=== PATIENT | female | born 1985 | race Caucasian/White ===

== ENCOUNTER 2016-07-25 15:13 | Emergency (ER) | payer OTHER ==
[~2016-07-25] VITALS: Ht 162.6 cm; Wt 54.2 kg
[~2016-07-25 15:13] MED LIST: AMBIEN10 MG PO; BACTRIM,SEPT1 TABLET PO; BENTYL10 MG PO; FLEXERIL10 MG PO; KEFLEX500 MG PO; METHADONE10 MG PO; ORTHO TRI-CY1 TABLE1 PO; PERCOCET 10/1 TABLET PO; PERCOCET 5/31 TABLET; PERCOCET 5/31 TABLET PO; SERTRALINE HCL50 MG PO; STOOL SOFTENER100 M1 PO; ZOFRAN ODT4 MG PO; ZOLOFT50 MG PO
[2016-07-25 17:01] LABS: HEMATOCRIT 36.5 % (36.0-46.0); MCH 31.9 PG (29.0-34.0); MCHC 34.8 G/DL (30.0-36.0); MCV 91.7 FL (83-99); MEAN PLAT.VOLUME 9.5 uM^3 (9.5-12.4); PLATELET COUNT 294 K/uL (156-360); RBC DIS.WIDTH-SD 41.9 % (39-53); RED BLOOD COUNT 3.98 M/uL (3.80-5.20); WHITE BLOOD COUNT 11.4 K/uL (4.1-10.2)
[2016-07-25 17:10] LABS: CHLORIDE 100 mEq/L (99-109); POTASSIUM 2.8 mEq/L (3.7-5.4); SODIUM 137 mEq/L (136-147)
[2016-07-25 17:12] LABS: GLUCOSE 86 mg/dL (70-99)
[2016-07-25 17:14] LABS: ANION GAP 9 MEQ/L (2-14); D-DIMER ELISA 1.58 mg/L FEU (< 0.57)
[2016-07-25 17:16] LABS: GFR ESTIMATE (CALCULATED) > 59 mL/min/
[2016-07-25 17:17] LABS: UREA NITROGEN (BUN) 8 mg/dL (9-23)
[2016-07-25 17:23] LABS: TROP-I INTERPRETATION NEGATIVE; TROPONIN-I < 0.01 ng/mL (0.0-0.30)
[2016-07-25] MEDS ORDERED: PRENATAL TABLE1 EAC3 PO (20:32)
[2016-07-25] MEDS ORDERED: METHADONE10 MG PO (20:32)
[2016-07-25] MEDS ORDERED: POTASSIUM CHLO10 ME3 PO (20:33)
[2016-07-25 21:10] VITALS: BP 92/61
== END 2016-07-25 21:10 | disposition home or self-care (01) ==
LOC: EME 15:13
PROVIDERS: Emergency Medicine
DX: O99.89 Other specified diseases and conditions complicating pregnancy, childbirth and the puerperium (principal); R07.89 Other chest pain; E86.0 Dehydration; Z3A.27 27 weeks gestation of pregnancy; Z87.440 Personal history of urinary (tract) infections
CPT/HCPCS: 71020; 71275; 80048; 84484; 85027; 85379; 93005; 99281; 99285; J7030

== ENCOUNTER 2016-08-29 15:23 | Emergency (ER) | payer OTHER ==
[~2016-08-29] VITALS: Ht 162.6 cm; Wt 55.1 kg
[~2016-08-29 15:23] MED LIST changes: +POTASSIUM CHLO10 ME3 PO; +PRENATAL TABLE1 EAC3 PO
[2016-08-29 17:40] VITALS: BP 123/90
== END 2016-08-29 17:40 | disposition home or self-care (01) ==
LOC: EME 15:23
DX: O99.353 Diseases of the nervous system complicating pregnancy, third trimester (principal); G89.29 Other chronic pain; M54.5 Low back pain; Z3A.32 32 weeks gestation of pregnancy; Z79.891 Long term (current) use of opiate analgesic
CPT/HCPCS: 99281; 99284

== ENCOUNTER 2016-10-06 11:51 | Inpatient (IN) | payer OTHER ==
[2016-10-06] VITALS (8 sets, daily range): BP systolic 128–145; BP diastolic 76–88
[~2016-10-06] VITALS: Ht 162.6 cm; Wt 57.2 kg
[2016-10-06] MEDS ORDERED: KLOR-CON M2020 MEQ PO (12:05)
[2016-10-06] MEDS ORDERED: METHADONE10 MG PO (12:07)
[2016-10-06 13:02] LABS: ADD MIUA? YES; BILIRUBIN NEGATIVE; BLOOD NEGATIVE; COLOR YELLOW ((YELLOW)); GLUCOSE (STRIP) NEGATIVE; KETONES NEGATIVE; LEUKOCYTES LARGE; NITRITE NEGATIVE; PROTEIN (STRIP) NEGATIVE; SPECIFIC GRAVITY 1.004 (1.000-1.030); UROBILINOGEN 0.2 MG/DL (0.2-1.0)
[2016-10-06 13:17] LABS: BACTERIA 2+ /HPF; EPITHELIAL CELLS 2+ /HPF; MUCUS TRACE /LPF; RED BLOOD CELLS 20-30 /HPF (0-5); UCUL ADDED? YES; WHITE BLOOD CELLS 15-20 /HPF (0-5)
[2016-10-06 13:31] LABS: EOSINOPHIL (%) 0.2 % (0-5); HEMATOCRIT 37.2 % (36.0-46.0); IMMATURE GRANULOCYTE (%) 0.4 % (0.0-0.7); INSTRUMENT ABS NEUTROPHIL CT 5.3 K/uL; LYMPHOCYTE COUNT 2.5 K/uL (1.0-2.8); MCH 31.5 PG (29.0-34.0); MCHC 34.1 G/DL (30.0-36.0); MCV 92.3 FL (83-99); MEAN PLAT.VOLUME 11.2 uM^3 (9.5-12.4); MONOCYTE (%) 3.9 % (3-12); MONOCYTE COUNT 0.3 K/uL (0-0.8); NEUTROPHIL (%) 65.2 % (45-76); NEUTROPHIL COUNT 5.3 K/uL (1.8-6.4); PLATELET COUNT 254 K/uL (156-360); RBC DIS.WIDTH-CV 12.9 % (11.8-14.6); RBC DIS.WIDTH-SD 43.3 % (39-53); RED BLOOD COUNT 4.03 M/uL (3.80-5.20); WHITE BLOOD COUNT 8.2 K/uL (4.1-10.2)
[2016-10-06 13:32] LABS: AMPHETAMINES QUANT VALUE 0 NG/ML; BARBITUATES QUANT VALUE 0 NG/ML; BENZODIAZEPINES QUANT VALUE 0 NG/ML; BENZODIAZEPINES, URINE SCREEN Negative (200 ng/mL); MARIJUANA QUANT VALUE 0 NG/ML; OPIATES QUANTITATIVE VALUE 0 NG/ML; PHENCYCLIDINE QUANT VALUE 0 NG/ML
[2016-10-06 13:56] LABS: ALKALINE PHOSPHATASE 261 IU/L (3-129); ANION GAP 10 MEQ/L (2-14); CHLORIDE 104 MEQ/L (99-109); GFR ESTIMATE (CALCULATED) > 59 mL/min/; GLUCOSE 77 mg/dL (70-99); LACTATE DEHYDROGENASE 192 IU/L (20-246); POTASSIUM 3.6 MEQ/L (3.7-5.4); SAMPLE HEMOLYSIS CHECK 0; SAMPLE ICTERIC CHECK 0; SAMPLE LIPEMIA CHECK 0; SODIUM 137 MEQ/L (136-147); TOTAL BILIRUBIN 0.6 MG/DL (0.0-1.0); UREA NITROGEN (BUN) 10 mg/dL (9-23); URIC ACID 8.2 mg/dL (3.1-9.2)
[2016-10-06 21:41] LABS: UR CREATININE CONCENTRATION 33.2 MG/DL
[2016-10-07] VITALS (12 sets, daily range): BP systolic 109–133; BP diastolic 56–85
[2016-10-07 06:37] LABS: HEMATOCRIT 36.5 % (36.0-46.0); MCH 30.7 PG (29.0-34.0); MCHC 32.6 G/DL (30.0-36.0); MCV 94.3 FL (83-99); MEAN PLAT.VOLUME 11.2 uM^3 (9.5-12.4); PLATELET COUNT 211 K/uL (156-360); RBC DIS.WIDTH-CV 13.2 % (11.8-14.6); RBC DIS.WIDTH-SD 45.6 % (39-53); RED BLOOD COUNT 3.87 M/uL (3.80-5.20); WHITE BLOOD COUNT 7.7 K/uL (4.1-10.2)
[2016-10-07 06:57] LABS: INTER. NORMALIZED RATIO 0.9; PTT 27.8 (25-32)
[2016-10-07 07:36] LABS: PROTHROMBIN TIME 9.4 (9.2-11.2)
[2016-10-07 07:41] LABS: FIBRINOGEN 423 MG/DL (160-450)
[2016-10-07 11:56] LABS: HBSG INDEX 0.22
[2016-10-07 11:57] LABS: HPCA INDEX 0.06
[2016-10-07 11:58] LABS: ANTI-HEPATITIS A VIRUS (IGM) Nonreactive; HAV INDEX 0.15
[2016-10-07 11:59] LABS: ANTI-HEPATITIS B CORE (IGM) Nonreactive; HBC IgM INDEX 0.11
[2016-10-08] VITALS (7 sets, daily range): BP systolic 98–122; BP diastolic 57–73
[2016-10-08 07:35] LABS: EOSINOPHIL (%) 0.3 % (0-5); HEMATOCRIT 27.9 % (36.0-46.0); IMMATURE GRANULOCYTE (%) 0.4 % (0.0-0.7); IMMATURE GRANULOCYTE COUNT 0.1 K/uL; INSTRUMENT ABS NEUTROPHIL CT 7.9 K/uL; LYMPHOCYTE COUNT 2.7 K/uL (1.0-2.8); MCH 31.5 PG (29.0-34.0); MCHC 33.3 G/DL (30.0-36.0); MCV 94.6 FL (83-99); MONOCYTE (%) 6.5 % (3-12); MONOCYTE COUNT 0.7 K/uL (0-0.8); NEUTROPHIL (%) 68.8 % (45-76); NEUTROPHIL COUNT 7.9 K/uL (1.8-6.4); PLATELET COUNT 184 K/uL (156-360); RBC DIS.WIDTH-CV 13.1 % (11.8-14.6); RBC DIS.WIDTH-SD 45.2 % (39-53)
[2016-10-08 07:36] LABS: ALKALINE PHOSPHATASE 154 IU/L (3-129); ANION GAP 7 MEQ/L (2-14); CHLORIDE 104 MEQ/L (99-109); GFR ESTIMATE (CALCULATED) > 59 mL/min/; GLUCOSE 67 mg/dL (70-99); POTASSIUM 3.9 MEQ/L (3.7-5.4); SAMPLE HEMOLYSIS CHECK 0; SAMPLE ICTERIC CHECK 0; SAMPLE LIPEMIA CHECK 0; SODIUM 137 MEQ/L (136-147); TOTAL BILIRUBIN 0.3 MG/DL (0.0-1.0); UREA NITROGEN (BUN) 15 mg/dL (9-23)
[2016-10-08 07:42] LABS: RED BLOOD COUNT 2.95 M/uL (3.80-5.20); WHITE BLOOD COUNT 11.5 K/uL (4.1-10.2)
[2016-10-09 23:16] VITALS: BP 125/73
[2016-10-10 07:25] VITALS: BP 114/65
[2016-10-10 08:35] LABS: ALKALINE PHOSPHATASE 172 IU/L (3-129); TOTAL BILIRUBIN 0.3 MG/DL (0.0-1.0)
[2016-10-10] MEDS ORDERED: ENDOCET 5-3251 EACH PO (09:42)
[2016-10-10] MEDS ORDERED: CHROMAGEN,1 CAPSULE PO (09:42)
[2016-10-10] MEDS ORDERED: IBUPROFEN800 MG PO (09:42)
[2016-10-10 14:15] VITALS: BP 130/69
[2016-10-10 23:14] VITALS: BP 145/83
[2016-10-11 07:30] VITALS: BP 117/62
[2016-10-11 15:30] VITALS: BP 126/69
== END 2016-10-11 18:05 | disposition home or self-care (01) | DRG 765 ==
LOC: LDRP-OP 11:51 → 2WEST 11:52 → LDRP-OP 11-21 12:45
PROVIDERS: Advanced Practice Midwife; Obstetrics & Gynecology; Obstetrics & Gynecology Obstetrics
PROC: 10D00Z1 Extraction of Products of Conception, Low, Open Approach (ICD-10-PCS; principal; 2016-10-07)
DX: O26.613 Liver and biliary tract disorders in pregnancy, third trimester (principal); K83.1 Obstruction of bile duct; O99.02 Anemia complicating childbirth; D62 Acute posthemorrhagic anemia; O99.324 Drug use complicating childbirth; F11.20 Opioid dependence, uncomplicated; E87.6 Hypokalemia; Z88.0 Allergy status to penicillin; Z87.09 Personal history of other diseases of the respiratory system; Z3A.38 38 weeks gestation of pregnancy; Z37.0 Single live birth
CPT/HCPCS: 71020; 80053; 80074; 80076; 80306 90; 81003; 82239 90; 82570; 83615; 84156; 84550; 85025; 85027; 85384; 85610; 85730; 86850; 86900; 86901; 87086; G0378; J1100; J1580; J1885; J2274; J2405; J7050; J7120